=== PATIENT | male | born 1960 | race African-American/Black ===

== ENCOUNTER 2018-03-15 07:15 | Outpatient (CLI) | payer BC ==
[2018-03-15 12:36] LABS: ALBUMIN 4.4 g/dL (3.2-5.5); ALBUMIN/GLOBULIN RATIO 1.4 (1.0-2.2); ALKALINE PHOSPHATASE 56 IU/L (42-121); ALT ALANINE AMINOTRANSFERASE 35 IU/L (10-60); AST ASPARTATE AMINOTRANSFERASE 23 IU/L (10-42); BILIRUBIN,TOTAL 0.5 mg/dL (0.2-1.0); BUN - BLOOD UREA NITROGEN 13 mg/dL (6-20); CALCIUM 9.3 mg/dL (8.5-10.3); CARBON DIOXIDE - CO2 26 mmol/L (21-32); CHLORIDE 102 mmol/L (101-111); CHOL/HDL RATIO 5.6 (<5.0); CHOLESTEROL 252 mg/dL; CREATININE 1.1 mg/dL (0.6-1.2); GFR - MDRD 84 (>89); GLUCOSE 124 mg/dL (70-100); HDL CHOLESTEROL 45 mg/dL; LDL CHOLESTEROL,CALCULATED 160 mg/dL; LDL/HDL RATIO 3.6 (<3.6); SODIUM 136 mmol/L (135-145); TOTAL PROTEIN 7.6 g/dL (6.7-8.2); VLDL CHOLESTEROL 47 mg/dL
[2018-03-15 12:40] LABS: BASOPHILS % (AUTO) 0.7 %; EOSINOPHILS # (AUTO) 0.1 10^3/uL (0.0-0.7); EOSINOPHILS % (AUTO) 2.1 %; HGB - HEMOGLOBIN 14.2 g/dL (14.0-18.0); LYMPHOCYTES # (AUTO) 1.7 10^3/uL (1.5-3.5); LYMPHOCYTES % (AUTO) 25.1 %; MEAN CORPUSCULAR HEMOGLOBIN 29.7 pg (27.0-31.0); MEAN CORPUSCULAR HGB CONC 33.5 g/dL (32.0-36.0); MEAN CORPUSCULAR VOLUME 88.7 fL (80.0-94.0); MEAN PLATELET VOLUME 8.2 fL (7.4-11.4); MONOCYTES # (AUTO) 0.8 10^3/uL (0.0-1.0); MONOCYTES % (AUTO) 11.2 %; NEUTROPHILS # (AUTO) 4.2 10^3/uL (1.5-6.6); NEUTROPHILS % (AUTO) 60.9 %; PLT - PLATELET COUNT 289 10^3/uL (130-450); RED BLOOD COUNT 4.79 10^6/uL (4.70-6.10); RED CELL DISTRIBUTION WIDTH 15.2 % (12.0-15.0)
== END 2018-03-15 23:59 | disposition home or self-care (01) ==
LOC: LAB.WCP 07:15
PROVIDERS: ATTEND Family Medicine
DX: M10.9 Gout, unspecified (principal); R73.01 Impaired fasting glucose; Z12.5 Encounter for screening for malignant neoplasm of prostate
CPT/HCPCS: 36415; 80053; 80061; 83721; 84153; 84443; 84550; 85025

== ENCOUNTER 2018-06-10 10:11 | Outpatient (CLI) | payer BC ==
[2018-06-10 13:16] LABS: HB2 TOTAL 15.3 g/dL; HEMOGLOBIN A1C 0.62 g/dL; HEMOGLOBIN A1C % 5.9 % (4.6-6.2)
[2018-06-10 13:17] LABS: ALBUMIN 4.2 g/dL (3.2-5.5); ALBUMIN/GLOBULIN RATIO 1.2 (1.0-2.2); BILIRUBIN,TOTAL 0.7 mg/dL (0.2-1.0); CALCIUM 9.5 mg/dL (8.5-10.3); CREATININE 1.3 mg/dL (0.6-1.2); TOTAL PROTEIN 7.7 g/dL (6.7-8.2); URIC ACID 6.1 mg/dL (2.6-7.2)
== END 2018-06-10 23:59 ==
LOC: LAB.WCP 10:11
PROVIDERS: ATTEND Family Medicine
DX: M20.10 Hallux valgus (acquired), unspecified foot (principal); E88.81 Metabolic syndrome and other insulin resistance; E78.5 Hyperlipidemia, unspecified; I10 Essential (primary) hypertension; M10.9 Gout, unspecified
CPT/HCPCS: 36415; 80053; 83036; 84550

== ENCOUNTER 2018-08-02 12:36 | Emergency (ER) | payer BC ==
[2018-08-02 13:04] LABS: BILIRUBIN,URINE NEGATIVE (NEGATIVE); GLUCOSE, URINE (UA) NEGATIVE (NEGATIVE); KETONES,URINE (UA) NEGATIVE (NEGATIVE); LEUKOCYTE ESTERASE, URINE NEGATIVE (NEGATIVE); NITRITE,URINE NEGATIVE (NEGATIVE); OCCULT BLOOD,URINE NEGATIVE (NEGATIVE); PROTEIN,URINE NEGATIVE (NEGATIVE); UROBILINOGEN,URINE 0.2 (NORMAL) E.U./dL (NORMAL)
[2018-08-02 13:07] LABS: CLARITY,URINE CLEAR (CLEAR)
[2018-08-02 13:21] LABS: BASOPHILS # (AUTO) 0.1 10^3/uL (0.0-0.1); BASOPHILS % (AUTO) 0.4 %; EOSINOPHILS % (AUTO) 0.3 %; HGB - HEMOGLOBIN 13.7 g/dL (14.0-18.0); LYMPHOCYTES # (AUTO) 1.2 10^3/uL (1.5-3.5); LYMPHOCYTES % (AUTO) 8.2 %; MEAN CORPUSCULAR HEMOGLOBIN 29.2 pg (27.0-31.0); MEAN CORPUSCULAR HGB CONC 32.8 g/dL (32.0-36.0); MEAN CORPUSCULAR VOLUME 88.8 fL (80.0-94.0); MEAN PLATELET VOLUME 7.5 fL (7.4-11.4); MONOCYTES # (AUTO) 1.3 10^3/uL (0.0-1.0); MONOCYTES % (AUTO) 9.3 %; NEUTROPHILS # (AUTO) 11.7 10^3/uL (1.5-6.6); NEUTROPHILS % (AUTO) 81.8 %; PLT - PLATELET COUNT 304 10^3/uL (130-450); RED BLOOD COUNT 4.68 10^6/uL (4.70-6.10); RED CELL DISTRIBUTION WIDTH 14.6 % (12.0-15.0); WHITE BLOOD COUNT 14.3 x10^3/uL (4.8-10.8)
[2018-08-02 13:34] LABS: ALBUMIN 4.3 g/dL (3.2-5.5); ALBUMIN/GLOBULIN RATIO 1.1 (1.0-2.2); BILIRUBIN,TOTAL 0.9 mg/dL (0.2-1.0); CALCIUM 9.4 mg/dL (8.5-10.3); CREATININE 1.1 mg/dL (0.6-1.2); TOTAL PROTEIN 8.1 g/dL (6.7-8.2)
--- NOTE | 2018-08-02 14:13 | ED Physician Documentation ---
PD HPI ABD PAIN - Stated complaint Stated Complaint: NAUSEA/ABD PX/SENT BY - Chief complaint Chief Complaint: Abd Pain - History obtained from History obtained from: Patient - History of Present Illness Timing - onset: Other (He had diverticulitis a couple of times. He has had 2 to 3 days of increasing left lower quadrant pain associated with an episode of nausea and sweatiness overnight and smaller caliber stools without hematochezia. No fevers.) Review of Systems Ten Systems: 10 systems reviewed and negative Constitutional: denies: Fever, Chills, Myalgias Cardiac: denies: Chest pain / pressure, Palpitations Respiratory: denies: Dyspnea, Cough PD PAST MEDICAL HISTORY - Past Medical History Past Medical History: Yes GI: Diverticulitis - Past Surgical History Past Surgical History: No - Present Medications Home Medications: Ambulatory Orders Medication Instructions Recorded Confirmed Ciprofloxacin HCl [Cipro] 500 mg PO BID #20 tablet 08/02/18 Metronidazole [Flagyl] 500 mg PO TID #30 tablet 08/02/18 - Allergies Allergies/Adverse Reactions: Allergies Allergy/AdvReac Type Severity Reaction Status Date / Time No Known Drug Allergies Allergy Verified 08/02/18 12:44 - Social History Does the pt smoke?: No Smoking Status: Never smoker Does the pt drink ETOH?: No - Family History Family history: reports: Non contributory PD ED PE NORMAL - Vitals Vital signs reviewed: Yes - General General: Alert and oriented X 3, No acute distress - HEENT HEENT: PERRL, EOMI - Neck Neck: Supple, no meningeal sign, No bony TTP - Cardiac Cardiac: RRR, No murmur - Respiratory Respiratory: No respiratory distress, Clear bilaterally - Abdomen Abdomen: Other (Diminished bowel tones, quite tender in the left lower quadrant without surgical signs, no diffuse tenderness.) - Back Back: No CVA TTP, No spinal TTP - Derm Derm: Normal color, Warm and dry - Extremities Extremities: No edema, No calf tenderness / cord - Neuro Neuro: Alert and oriented X 3, Normal speech - Psych Psych: Normal mood, Normal affect Results - Vitals Vitals: Vital Signs - 24 hr 08/02/18 12:43 Temperature 36.6 C Heart Rate 85 Respiratory 18 Rate Blood Pressure 146/92 H O2 Saturation 99 Oxygen O2 Source Room air - Labs Labs: Laboratory Tests 08/02/18 08/02/18 08/02/18 12:15 13:13 13:13 WBC 14.3 H RBC 4.68 L Hgb 13.7 L Hct 41.6 L MCV 88.8 MCH 29.2 MCHC 32.8 RDW 14.6 Plt Count 304 MPV 7.5 Neut # (Auto) 11.7 H Lymph # (Auto) 1.2 L [place] # (Auto) 1.3 H Eos # (Auto) 0.0 Baso # (Auto) 0.1 Absolute Nucleated RBC 0.01 Nucleated RBC % 0.1 Sodium 138 Potassium 4.1 Chloride 100 L Carbon Dioxide 27 Anion Gap 11.0 BUN 10 Creatinine 1.1 Estimated GFR (MDRD) 84 L Glucose 114 H Calcium 9.4 Total Bilirubin 0.9 AST 20 ALT 28 Alkaline Phosphatase 62 Total Protein 8.1 Albumin 4.3 Globulin 3.8 Albumin/Globulin Ratio 1.1 Lipase 23 Urine Color YELLOW Urine Clarity CLEAR Urine pH 6.0 Ur Specific [place] 1.010 Urine Protein NEGATIVE Urine Glucose (UA) NEGATIVE Urine Ketones NEGATIVE Urine Occult Blood NEGATIVE Urine Nitrite NEGATIVE Urine Bilirubin NEGATIVE Urine Urobilinogen 0.2 (NORMAL) Ur Leukocyte Esterase NEGATIVE Ur Microscopic Review NOT INDICATED Urine Culture Comments NOT INDICATED - Rads (name of study) Ct A/P Radiology: EMP read contemporaneously (Uncomplicated diverticulitis) PD MEDICAL DECISION MAKING - ED course ED course: 58-year-old gentleman with diverticulitis, fairly tender so CT imaging was done to rule out perforation/abscess, neither of which was present. He requested discharge on oral antibiotics. He declined pain medications. Departure - Departure Disposition: 01 Home, Self Care Clinical Impression: Diverticulitis of gastrointestinal tract Condition: Good Record reviewed to determine appropriate education?: Yes Instructions: ED Diverticulitis Prescriptions: Ciprofloxacin HCl [Cipro] 500 mg PO BID #20 tablet Metronidazole [Flagyl] 500 mg PO TID #30 tablet Comments: Do not drink alcohol while on the antibiotics. Return for new or worsening symptoms or if pain is uncontrolled. Follow-up with your doctor in approximately 3 days for recheck.
[2018-08-02] MEDS ORDERED: IOVERSOL 320 100 ML VIAL IVP ONE ×2 (14:25→14:37)
--- NOTE | 2018-08-02 14:52 | CT Report ---
Reason: IV only, LLQ pain Procedure Date: 08/02/2018 Accession Number: [id number] / [id number] Procedure: CT - Abdomen/Pelvis W CPT Code: FULL RESULT: EXAM: CT ABDOMEN AND PELVIS EXAM DATE: 08/02/2018 02:35 PM. CLINICAL HISTORY: IV only, LLQ pain. COMPARISONS: ABDOMEN/PELVIS W/ 06/08/2013 6:59 PM. TECHNIQUE: Routine helical CT imaging was performed through the abdomen and pelvis. IV contrast: 100 cc Optiray 320. Enteric contrast: No. Reconstructions: Coronal and sagittal. In accordance with CT protocol optimization, one or more of the following dose reduction techniques were utilized for this exam: automated exposure control, adjustment of mA and/or KV based on patient size, or use of iterative reconstructive technique. FINDINGS: Lung Bases: Unremarkable. Liver: Normal. No masses. Gallbladder/Bile Ducts: Unremarkable. Spleen: Normal. Pancreas: Normal. Adrenal Glands: Normal. Kidneys: Normal. No masses or hydronephrosis. Peritoneal Cavity/Bowel: Moderate colonic diverticulosis with localized wall thickening and infiltration of fat adjacent to the descending sigmoid junction. No free fluid, free air, bowel dilation, or lymphadenopathy. The appendix is well visualized and normal. Pelvic Organs: Normal. The bladder and visualized pelvic organs are within normal limits. Vasculature: No aneurysms or other significant abnormality. Bones: No significant abnormality. Other: None. IMPRESSION: Moderate diverticulosis with acute diverticulitis. RADIA
[2018-08-02] MEDS ORDERED: metroNIDAZOLE 250 MG TABLET PO STA (14:55)
[2018-08-02] MEDS ORDERED: CIPROFLOXACIN 250 MG TABLET PO STA (14:55)
[2018-08-02 15:11] VITALS: BP 143/83
== END 2018-08-02 15:12 | disposition home or self-care (01) ==
LOC: ED 12:36
DX: K57.92 Diverticulitis of intestine, part unspecified, without perforation or abscess without bleeding (principal)
CPT/HCPCS: 36415; 74177; 80053; 81003; 83690; 85025; 99283; 99284; A9270; Q9967; 81001; 87086

== ENCOUNTER 2018-08-05 08:00 | Outpatient (CLI) | payer BC ==
[2018-08-05 18:47] LABS: BASOPHILS # (AUTO) 0.1 10^3/uL (0.0-0.1); BASOPHILS % (AUTO) 0.7 %; EOSINOPHILS # (AUTO) 0.1 10^3/uL (0.0-0.7); EOSINOPHILS % (AUTO) 1.1 %; HGB - HEMOGLOBIN 13.9 g/dL (14.0-18.0); LYMPHOCYTES # (AUTO) 1.7 10^3/uL (1.5-3.5); LYMPHOCYTES % (AUTO) 18.5 %; MEAN CORPUSCULAR HEMOGLOBIN 29.8 pg (27.0-31.0); MEAN CORPUSCULAR HGB CONC 33.1 g/dL (32.0-36.0); MEAN CORPUSCULAR VOLUME 90.2 fL (80.0-94.0); MEAN PLATELET VOLUME 7.8 fL (7.4-11.4); MONOCYTES # (AUTO) 0.9 10^3/uL (0.0-1.0); MONOCYTES % (AUTO) 9.4 %; NEUTROPHILS # (AUTO) 6.5 10^3/uL (1.5-6.6); NEUTROPHILS % (AUTO) 70.3 %; PLT - PLATELET COUNT 326 10^3/uL (130-450); RED BLOOD COUNT 4.65 10^6/uL (4.70-6.10); RED CELL DISTRIBUTION WIDTH 14.4 % (12.0-15.0); WHITE BLOOD COUNT 9.2 x10^3/uL (4.8-10.8)
== END 2018-08-05 23:59 | disposition home or self-care (01) ==
LOC: LAB.WCP 08:00
PROVIDERS: ATTEND Family Medicine
DX: K57.92 Diverticulitis of intestine, part unspecified, without perforation or abscess without bleeding (principal)
CPT/HCPCS: 36415; 85025

== ENCOUNTER 2019-03-14 18:30 | Emergency (ER) | payer BC ==
[2019-03-14] MEDS ORDERED: guaiFENesin/CODEINE 5 ML UDC PO STA (19:29)
[2019-03-14] MEDS ORDERED: ALBUTEROL NEB 2.5 MG/3 ML INH STA (19:29)
--- NOTE | 2019-03-14 19:30 | ED Physician Documentation ---
PD HPI DYSPNEA - Stated complaint Stated Complaint: COUGH, SOA - Chief complaint Chief Complaint: Resp - History obtained from History obtained from: Patient - History of Present Illness Timing - onset: Today (Healthy 58-year-old gentleman just returned from [place] yesterday where he was on a cruise, exposed to pneumonia and influenza. He has had a cough productive of white mucus today with some shortness of breath and chest congestion. No fevers or body aches.) Review of Systems Constitutional: denies: Fever, Chills, Myalgias, Fatigue Ears: denies: Ear pain Nose: denies: Rhinorrhea / runny nose Throat: denies: Sore throat Cardiac: denies: Chest pain / pressure PD PAST MEDICAL HISTORY - Past Medical History GI: Diverticulitis - Past Surgical History Past Surgical History: No - Present Medications Home Medications: Ambulatory Orders Medication Instructions Recorded Confirmed Ciprofloxacin HCl [Cipro] 500 mg PO BID #20 tablet 08/02/18 Metronidazole [Flagyl] 500 mg PO TID #30 tablet 08/02/18 Albuterol Sulf [Ventolin Hfa 1 - 2 puffs INH Q4HR PRN #1 inhaler 03/14/19 Inhaler] Benzonatate [Tessalon Perle] 100 - 200 mg PO TID PRN #30 capsule 03/14/19 guaiFENesin/CODEINE [Robitussin AC] 5 - 10 ml PO Q6H PRN #120 ml 03/14/19 - Allergies Allergies/Adverse Reactions: Allergies Allergy/AdvReac Type Severity Reaction Status Date / Time No Known Drug Allergies Allergy Verified 03/14/19 18:33 - Social History Does the pt smoke?: No Smoking Status: Never smoker Does the pt drink ETOH?: No PD ED PE NORMAL - Vitals Vital signs reviewed: Yes - General General: Alert and oriented X 3, No acute distress - HEENT HEENT: PERRL, EOMI - Neck Neck: Supple, no meningeal sign, No bony TTP - Cardiac Cardiac: RRR, No murmur - Respiratory Respiratory: No respiratory distress, Other (Mildly rhonchorous throughout, nonlabored, frequent bronchitic cough) - Abdomen Abdomen: Non tender - Neuro Neuro: Alert and oriented X 3, Normal speech Results - Vitals Vitals: Vital Signs - 24 hr 03/14/19 03/14/19 03/14/19 18:33 19:40 20:35 Temperature 36.6 C Heart Rate 96 81 98 Respiratory 14 16 17 Rate Blood Pressure 141/94 H O2 Saturation 95 96 Oxygen O2 Source Room air - Labs Labs: Laboratory Tests 03/14/19 19:29 Influenza A (Rapid) Negative Influenza B (Rapid) Negative PD MEDICAL DECISION MAKING - ED course ED course: 58-year-old gentleman with an acute illness most consistent with viral bronchitis. Chest x-ray and flu swab were negative. Feeling somewhat better after symptomatic treatments here with bronchodilators and codeine. Chest x-ray interpreted contemporaneously by me was negative for acute infiltrate. Departure - Departure Disposition: Home, Self Care Clinical Impression: Bronchitis Condition: Good Record reviewed to determine appropriate education?: Yes Instructions: ED Upper Resp Infec No Abx Tx Prescriptions: Albuterol Sulf [Ventolin Hfa Inhaler] 1 - 2 puffs INH Q4HR PRN #1 inhaler PRN Reason: Shortness Of Air/Wheezing Benzonatate [Tessalon Perle] 100 - 200 mg PO TID PRN #30 capsule PRN Reason: Cough guaiFENesin/CODEINE [Robitussin AC] 5 - 10 ml PO Q6H PRN #120 ml PRN Reason: Cough Comments: Return if you run a fever or worsen, follow-up with your doctor either late this week or early next week if not improving.
--- NOTE | 2019-03-14 20:37 | XRAY Report ---
Reason: cough Procedure Date: 03/14/2019 Accession Number: [id number] / [id number] Procedure: XR - Chest 2 View X-Ray CPT Code: 15357 Final Report FULL RESULT: EXAM: CHEST RADIOGRAPHY EXAM DATE: 03/14/2019 08:04 PM. CLINICAL HISTORY: Cough. Shortness of breath. COMPARISON: ABDOMEN/PELVIS W/ 08/02/2018 2:30 PM. TECHNIQUE: 2 views. FINDINGS: Lungs/Pleura: No focal opacities evident. No peribronchial cuffing or interstitial abnormality. No pleural effusion. No pneumothorax. Normal volumes. Mediastinum: Heart and mediastinal contours are unremarkable. Other: Old posterolateral right fifth and sixth rib fractures. IMPRESSION: Normal 2-view chest radiography. RADIA
[2019-03-14] MEDS ORDERED: BENZONATATE 100 MG CAPSULE PO STA (20:43)
[2019-03-14 20:46] VITALS: BP 119/82
== END 2019-03-14 20:51 | disposition home or self-care (01) ==
LOC: ED 18:30
DX: J40 Bronchitis, not specified as acute or chronic (principal)
CPT/HCPCS: 71046; 87275; 87276; 94640; 99284; A9270

== ENCOUNTER 2020-04-18 18:34 | Emergency (ER) | payer BC ==
[2020-04-18] MEDS ORDERED: ONDANSETRON 4 MG/2 ML VIAL IVP STA ×2 (18:49→19:26)
[2020-04-18] MEDS ORDERED: SODIUM CHLORIDE 0.9% 1,000 ML IV STA ×2 (18:49→19:26)
[2020-04-18 19:12] LABS: BASOPHILS % (AUTO) 0.2 %; EOSINOPHILS % (AUTO) 0.4 %; HGB - HEMOGLOBIN 13.6 g/dL (14.0-18.0); LYMPHOCYTES # (AUTO) 1.6 10^3/uL (1.5-3.5); LYMPHOCYTES % (AUTO) 16.1 %; MEAN CORPUSCULAR HEMOGLOBIN 30.4 pg (27.0-31.0); MEAN CORPUSCULAR HGB CONC 34.1 g/dL (32.0-36.0); MEAN CORPUSCULAR VOLUME 89.1 fL (80.0-94.0); MEAN PLATELET VOLUME 9.2 fL (7.4-11.4); MONOCYTES # (AUTO) 0.8 10^3/uL (0.0-1.0); MONOCYTES % (AUTO) 7.4 %; NEUTROPHILS # (AUTO) 7.6 10^3/uL (1.5-6.6); NEUTROPHILS % (AUTO) 75.5 %; PLT - PLATELET COUNT 298 10^3/uL (130-450); RED BLOOD COUNT 4.48 10^6/uL (4.70-6.10); RED CELL DISTRIBUTION WIDTH 13.4 % (12.0-15.0); WHITE BLOOD COUNT 10.1 x10^3/uL (4.8-10.8)
[2020-04-18 19:22] LABS: ALBUMIN 4.1 g/dL (3.2-5.5); ALBUMIN/GLOBULIN RATIO 1.2 (1.0-2.2); BILIRUBIN,TOTAL 0.7 mg/dL (0.2-1.0); CALCIUM 9.5 mg/dL (8.5-10.3); TOTAL PROTEIN 7.6 g/dL (6.7-8.2)
--- NOTE | 2020-04-18 19:30 | ED Physician Documentation ---
PD HPI NVD - Stated complaint Stated Complaint: VOMITING,HOT FLASHES,MEIER - Chief complaint Chief Complaint: Abd Pain - History obtained from History obtained from: Patient - History of Present Illness Timing - onset: How many days ago (3-4) Timing - duration: Days (3-4) Timing - details: Gradual onset, Still present Associated symptoms: Other (nausea, vomiting, diarrhea, increased appetite, hot flashes with vomiting.) Contributing factors: Other (history of diverticulitis) Improved by: Vomiting Similar symptoms before: Diagnosis (diverticulitis) Recently seen: Not recently seen - Additonal information Additional information: 60 y/o male with a history of diverticulitis has developed symptoms about 3-4 days ago. He denies any significant pain but has had constipation followed by diarrhea and vomiting. Review of Systems Constitutional: reports: Chills, Sweats. denies: Fever Eyes: denies: Decreased vision Ears: denies: Ear pain Nose: denies: Rhinorrhea / runny nose, Congestion Throat: denies: Sore throat Cardiac: denies: Chest pain / pressure, Palpitations Respiratory: denies: Dyspnea, Cough GI: reports: Abdominal Pain, Nausea, Diarrhea. denies: Vomiting : denies: Dysuria, Frequency Skin: denies: Rash Musculoskeletal: denies: Neck pain, Back pain, Extremity pain Neurologic: reports: Headache. denies: Generalized weakness, Focal weakness, Numbness, Head injury, LOC PD PAST MEDICAL HISTORY - Past Medical History Past Medical History: Yes Cardiovascular: None Respiratory: None Neuro: None Endocrine/Autoimmune: None GI: Diverticulitis : None HEENT: None Psych: None Musculoskeletal: None Derm: None - Past Surgical History Past Surgical History: No - Present Medications Home Medications: Ambulatory Orders Medication Instructions Recorded Confirmed Amox/Clav 875/125 [Augmentin] 1 each PO Q12H #14 tab 04/18/20 - Allergies Allergies/Adverse Reactions: Allergies Allergy/AdvReac Type Severity Reaction Status Date / Time No Known Drug Allergies Allergy Verified 04/18/20 18:46 - Social History Does the pt smoke?: No Smoking Status: Never smoker Does the pt drink ETOH?: No Does the pt have substance abuse?: No - Immunizations Immunizations are current?: No Immunizations: TDAP >10years/unknown - POLST Patient has POLST: No PD ED PE NORMAL - Vitals Vital signs reviewed: Yes - General General: Alert and oriented X 3, No acute distress, Well developed/nourished - HEENT HEENT: Atraumatic, PERRL, EOMI - Neck Neck: Supple, no meningeal sign, No bony TTP - Cardiac Cardiac: RRR, No murmur - Respiratory Respiratory: No respiratory distress, Clear bilaterally - Abdomen Abdomen: Soft, Other (mild LLQ tenderness to deep palpation without garding low on the left. 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, No motor deficit, No sensory deficit, Normal speech Eye Opening: Spontaneous Motor: Obeys Commands Verbal: Oriented GCS Score: 15 - Psych Psych: Normal mood, Normal affect Results - Vitals Vitals: Vital Signs - 24 hr 04/18/20 04/18/20 04/18/20 18:37 19:02 19:09 Temperature 36.8 C Heart Rate 71 72 Respiratory 16 18 17 Rate Blood Pressure 158/95 H 152/100 H O2 Saturation 98 93 04/18/20 04/18/20 04/18/20 19:57 20:02 20:16 Temperature Heart Rate 71 Respiratory 7 L 16 17 Rate Blood Pressure 141/95 H O2 Saturation 100 04/18/20 04/18/20 04/18/20 21:03 21:19 21:51 Temperature Heart Rate 67 70 74 Respiratory 16 17 17 Rate Blood Pressure 134/97 H 151/80 H O2 Saturation 98 96 98 Oxygen O2 Source Room air - Labs Labs: Laboratory Tests 04/18/20 04/18/20 19:06 19:06 WBC 10.1 RBC 4.48 L Hgb 13.6 L Hct 39.9 L MCV 89.1 MCH 30.4 MCHC 34.1 RDW 13.4 Plt Count 298 MPV 9.2 Neut # (Auto) 7.6 H Lymph # (Auto) 1.6 [place] # (Auto) 0.8 Eos # (Auto) 0.0 Baso # (Auto) 0.0 Absolute Nucleated RBC 0.00 Nucleated RBC % 0.0 Sodium 136 Potassium 4.0 Chloride 100 L Carbon Dioxide 27 Anion Gap 9.0 BUN 11 Creatinine 1.0 Estimated GFR (MDRD) 93 Glucose 91 Calcium 9.5 Total Bilirubin 0.7 AST 22 ALT 32 Alkaline Phosphatase 58 Total Protein 7.6 Albumin 4.1 Globulin 3.5 Albumin/Globulin Ratio 1.2 Lipase 24 - Rads (name of study) CT ab/pel with Radiology: Prelim report reviewed (Impression: 1. Mild sigmoid diverticulitis without complication. Similar location but much less severe compared to with the prior study. 2. Hepatic steatosis.), EMP read indepedently, See rad report PD MEDICAL DECISION MAKING - ED course Complexity details: reviewed old records, reviewed results, re-evaluated patient, considered differential, d/w patient ED course: 60-year-old male with a history of diverticulitis and a lot of diverticula has developed symptoms similar to what is had previously without as much pain as previous. The CT does show mild diverticulitis and he is a given a dose of Unasyn we will place him on some Augmentin. Departure - Departure Disposition: 01 Home, Self Care Clinical Impression: Diverticulitis of gastrointestinal tract Instructions: ED Diverticulitis Follow-Up: Tom Quintero MD [Primary Care Provider] - Prescriptions: Amox/Clav 875/125 [Augmentin] 1 each PO Q12H #14 tab Discharge Date/Time: 04/18/20 22:00
[2020-04-18] MEDS ORDERED: IOVERSOL 320 100 ML VIAL IVP ONE ×2 (19:43→20:03)
--- NOTE | 2020-04-18 21:00 | CT Report ---
PROCEDURE: Abdomen/Pelvis W INDICATIONS: LLQ pain CONTRAST: IV CONTRAST: Optiray 320 ml: 100 PO CONTRAST: *NO PO CONTRAST TECHNIQUE: After the administration of IV contrast, 5 mm thick sections acquired from the diaphragms to the symp hysis. 5 mm thick coronal and sagittal reformats were acquired. For radiation dose reduction, the f ollowing was used: automated exposure control, adjustment of mA and/or kV according to patient size. COMPARISON: 08/02/2018 FINDINGS: Image quality: Excellent. ABDOMEN: Lung bases: Lung bases are clear. Heart size is normal. Solid organs: The liver is mildly enlarged and moderately steatotic. The spleen is normal size. Gall bladder is within normal limits. Biliary system is non dilated. Pancreas enhances normally. No adr enal nodules. Kidneys demonstrate normal size and enhancement, without hydronephrosis. Peritoneum and bowel: There are several diverticula throughout the sigmoid and distal descending col on. There is mild wall thickening and subtle inflammatory changes around the proximal sigmoid colon i n the left lower quadrant where numerous impacted diverticula are present. No extraluminal gas. No as sociated free fluid or fluid collection. There is a normal appendix. No evidence of small bowel obstr uction. . Nodes and vessels: No retroperitoneal or mesenteric adenopathy by size criteria. Aorta and inferior vena cava are normal in size. Miscellaneous: No ventral hernias. PELVIS: Genitourinary: Bladder wall thickness is normal. Miscellaneous: No inguinal hernias or adenopathy. Bones: No suspicious bony lesions. No vertebral body compression fractures. IMPRESSION: 1. Mild sigmoid diverticulitis without complication. Similar location but much less severe compared t o the prior study. 2. Hepatic steatosis. Reviewed by: Laury Nair MD on 04/18/2020 8:58 PM PST Approved by: Laury Nair MD on 04/18/2020 8:58 PM PST Station ID: [id number]
[2020-04-18] MEDS ORDERED: AMPICILLIN/SULBACTAM 1.5 GM in SODIUM CHLORIDE 0.9% MINIBAG 100 ML IV STA (21:05)
[2020-04-18 21:53] VITALS: BP 151/80
== END 2020-04-18 22:00 | disposition home or self-care (01) ==
LOC: ED 18:34
DX: K57.32 Diverticulitis of large intestine without perforation or abscess without bleeding (principal)
CPT/HCPCS: 36415; 74177; 80053; 83690; 85025; 96361; 96365; 96375; 99283; 99284; Q9967

== ENCOUNTER 2021-03-10 08:00 | Outpatient (CLI) | payer BC ==
[2021-03-10 20:56] LABS: ALBUMIN 4.1 g/dL (3.2-5.5); ALBUMIN/GLOBULIN RATIO 1.2 (1.0-2.2); BILIRUBIN,TOTAL 0.5 mg/dL (0.2-1.0); BILIRUBIN,URINE NEGATIVE (NEGATIVE); CALCIUM 9.4 mg/dL (8.5-10.3); CREATININE 1.3 mg/dL (0.6-1.2); GLUCOSE, URINE (UA) NEGATIVE (NEGATIVE); KETONES,URINE (UA) NEGATIVE (NEGATIVE); LEUKOCYTE ESTERASE, URINE NEGATIVE (NEGATIVE); NITRITE,URINE NEGATIVE (NEGATIVE); OCCULT BLOOD,URINE NEGATIVE (NEGATIVE); PH,URINE 5.5 PH (5.0-7.5); POTASSIUM 4.3 mmol/L (3.5-5.0); PROTEIN,URINE NEGATIVE (NEGATIVE); TOTAL PROTEIN 7.6 g/dL (6.7-8.2); URIC ACID 8.8 mg/dL (2.6-7.2); UROBILINOGEN,URINE 0.2 (NORMAL) E.U./dL (NORMAL)
[2021-03-10 21:01] LABS: BASOPHILS % (AUTO) 0.5 %; EOSINOPHILS # (AUTO) 0.2 10^3/uL (0.0-0.7); EOSINOPHILS % (AUTO) 1.9 %; HCT - HEMATOCRIT 42.7 % (42.0-52.0); LYMPHOCYTES # (AUTO) 1.6 10^3/uL (1.5-3.5); MEAN CORPUSCULAR HEMOGLOBIN 29.2 pg (27.0-31.0); MEAN CORPUSCULAR HGB CONC 32.8 g/dL (32.0-36.0); MEAN CORPUSCULAR VOLUME 89.1 fL (80.0-94.0); MEAN PLATELET VOLUME 9.8 fL (7.4-11.4); MONOCYTES # (AUTO) 0.8 10^3/uL (0.0-1.0); MONOCYTES % (AUTO) 9.1 %; NEUTROPHILS # (AUTO) 5.9 10^3/uL (1.5-6.6); NEUTROPHILS % (AUTO) 68.7 %; PLT - PLATELET COUNT 363 10^3/uL (130-450); RED BLOOD COUNT 4.79 10^6/uL (4.70-6.10); RED CELL DISTRIBUTION WIDTH 14.4 % (12.0-15.0); WHITE BLOOD COUNT 8.6 x10^3/uL (4.8-10.8)
[2021-03-10 21:38] LABS: ESTIMATED AVERAGE GLUCOSE 131 mg/dL (70-100); HEMOGLOBIN A1c% 6.2 % (4.27-6.07)
[2021-03-10 22:03] LABS: CLARITY,URINE HAZY (CLEAR); RBC,URINE 0-5 /HPF (0-5); WBC,URINE 0-3 /HPF (0-3)
[2021-03-10 22:04] LABS: BACTERIA,URINE Rare /HPF (None Seen); SQUAMOUS EPITHELIAL CELL,UR RARE Squamous (<= Few)
[2021-03-11 14:41] LABS: CHOL/HDL RATIO 4.5 (<5.0); CHOLESTEROL 241 mg/dL; HDL CHOLESTEROL 53 mg/dL; LDL CHOLESTEROL,CALCULATED 156 mg/dL; LDL/HDL RATIO 2.9 (<3.6); TRIGLYCERIDES 161 mg/dL; VLDL CHOLESTEROL 32 mg/dL
== END 2021-03-10 23:59 | disposition home or self-care (01) ==
LOC: LAB.WCP 08:00
PROVIDERS: ATTEND Nurse Practitioner
DX: I10 Essential (primary) hypertension (principal); E78.5 Hyperlipidemia, unspecified; R73.01 Impaired fasting glucose; Z12.5 Encounter for screening for malignant neoplasm of prostate; M10.9 Gout, unspecified
CPT/HCPCS: 36415; 80053; 80061; 81001; 83036; 83721; 84153; 84550; 85025; 86140; 87086